=== PATIENT | female | born 1965 | race Caucasian/White ===

== ENCOUNTER 2017-09-04 11:46 | Emergency (ER) | payer OTHER ==
[~2017-09-04] VITALS: Ht 149.9 cm; Wt 84.0 kg
[2017-09-04 11:55] VITALS: BP 131/82; PULSE 86; RESP 16; TEMP 98.2; O2SAT 98
[2017-09-04] MEDS ORDERED: METF500T PO (12:07)
[2017-09-04] MEDS ORDERED: SODIUM CHLORIDE 0.9% FLUSH 10 ML FLUSH IVF PRN (12:15)
[2017-09-04] MEDS ORDERED: SODIUM CHLORID 0.9% 500 ML INJ 500 ML IV ONE (12:15)
--- NOTE | 2017-09-04 12:37 | PD ---
HPI Chief Complaint: Dizziness Time Seen by Provider: 11:59 Travel History International Travel<30 days: No Contact w/Intl Traveler<30days: No Traveled to known affect area: No History of Present Illness HPI 51-year-old female came to the emergency room brought by EMS for dizziness while she was trying to bend down and take some laundry out of the machine. Patient says at that time she also had some neck pain. She's been having some on and off headache, sore throat and other unrelated complains for past 2-3 days. But then she also says that she gets frequent headaches and that is not new for her. No history of vomiting or diarrhea. No history of fever or chills. Patient says yesterday she slept with her neck crooked for some time and when she woke up she was having some neck discomfort. Currently she appears to be very comfortable and vital signs are stable. She moved from [place] and does not have a primary care here. Vital signs are stable. When she arrived in the ER on the ambulance stretcher she was on her cell phone. [facility] Past Medical History Narrative Medical List of her past medical, surgical, social and family history is reviewed from the nursing note. Anxiety: Yes (WITH PAINIC ATTACKS) High Cholesterol: Yes Diabetes: Yes Patient Takes Glucophage: Yes (METFORMIN) Musculoskeletal: Yes (OSTEOPENIA) Immunizations Current: Yes ?: Not Past Surgical History Section: Yes (X2) Social History Alcohol Use: No Tobacco Use: No (NEVER) Substance Use: No Allergies-Medications (Allergen,Severity, Reaction): Coded Allergies: No Known Allergies (Unverified , 09/04/17) Comments No known drug allergies. Reported Meds & Prescriptions Reported Meds & Active Scripts Active Accu-Chek Amy Connect W/Device (Blood Glucose Monitoring Suppl) 1 Kit Kit Kit .ROUTE DIRECTED Macrobid (Nitrofurantoin Monoh/Nitrofur Macro) 100 Mg Cap 100 Mg PO BID 5 Days Meclizine (Meclizine HCl) 12.5 Mg Tab 12.5 Mg PO TID PRN Reported Metformin (Metformin HCl) 500 Mg Tab 500 Mg PO BIDPC Narrative Medication List of her home medications reviewed from the nursing note. Review of Systems Except as stated in HPI: all other systems reviewed are Neg Neurologic: Positive: Dizziness Physical Exam Narrative GENERAL: Awake, alert, no obvious distress SKIN: Focused skin assessment warm/dry. HEAD: Atraumatic. Normocephalic. EYES: Pupils equal and round. No scleral icterus. No injection or drainage. ENT: No nasal bleeding or discharge. Mucous membranes pink and moist. NECK: Trachea midline. No JVD. CARDIOVASCULAR: Regular rate and rhythm. No murmur appreciated. RESPIRATORY: No accessory muscle use. Clear to auscultation. Breath sounds equal bilaterally. GASTROINTESTINAL: Abdomen soft, non-tender, nondistended. Hepatic and splenic margins not palpable. MUSCULOSKELETAL: No obvious deformities. No clubbing. No cyanosis. No edema. NEUROLOGICAL: Awake and alert. No obvious cranial nerve deficits. Motor grossly within normal limits. Normal speech. PSYCHIATRIC: Appropriate mood and affect; insight and judgment normal. Data Data Last Documented VS Vital Signs Date Time Temp Pulse Resp B/P (MAP) Pulse Ox O2 Delivery O2 Flow Rate FiO2 09/04/17 14:43 09/04/17 14:00 77 16 99 Room Air 09/04/17 11:55 98.2 Orders Orders Electrocardiogram (09/04/17 12:12) Basic Metabolic Panel (Bmp) (09/04/17 12:12) Complete Blood Count With Diff (09/04/17 12:12) Magnesium (Mg) (09/04/17 12:12) Troponin I (09/04/17 12:12) Chest, Single Ap (09/04/17 12:12) Ecg Monitoring (09/04/17 12:12) Bilateral Bp Monitoring (09/04/17 12:12) Iv Access Insert/Monitor (09/04/17 12:12) Oximetry (09/04/17 12:12) Oxygen Administration (09/04/17 12:12) Sodium Chloride 0.9% Flush (Ns Flush) (09/04/17 12:15) Sodium Chlorid 0.9% 500 Ml Inj (Ns 500 M (09/04/17 12:15) Urinalysis - C+S If Indicated (09/04/17 12:12) Meclizine (Antivert) (09/04/17 12:45) Nitrofurantoin Monohyd Macrocr (Macrobid (09/04/17 14:00) Ed Discharge Order (09/04/17 13:49) Urine Culture (09/04/17 13:35) Labs Laboratory Tests Test 09/04/17 12:50 09/04/17 13:35 White Blood Count 6.8 TH/MM3 Red Blood Count 4.88 MIL/MM3 Hemoglobin 13.7 GM/DL Hematocrit 41.5 % Mean Corpuscular Volume 85.1 FL Mean Corpuscular Hemoglobin 28.2 PG Mean Corpuscular Hemoglobin Concent 33.1 % Red Cell Distribution Width 12.4 % Platelet Count 308 TH/MM3 Mean Platelet Volume 7.9 FL Neutrophils (%) (Auto) 82.3 % Lymphocytes (%) (Auto) 10.7 % Monocytes (%) (Auto) 5.6 % Eosinophils (%) (Auto) 1.1 % Basophils (%) (Auto) 0.3 % Neutrophils # (Auto) 5.6 TH/MM3 Lymphocytes # (Auto) 0.7 TH/MM3 Monocytes # (Auto) 0.4 TH/MM3 Eosinophils # (Auto) 0.1 TH/MM3 Basophils # (Auto) 0.0 TH/MM3 CBC Comment DIFF FINAL Differential Comment Blood Urea Nitrogen 10 MG/DL Creatinine 0.75 MG/DL Random Glucose 176 MG/DL Calcium Level 9.0 MG/DL Magnesium Level 2.3 MG/DL Sodium Level 138 MEQ/L Potassium Level 3.6 MEQ/L Chloride Level 105 MEQ/L Carbon Dioxide Level 25.8 MEQ/L Anion Gap 7 MEQ/L Estimat Glomerular Filtration Rate 81 ML/MIN Troponin I LESS THAN 0.02 NG/ML Urine Collection Type CLEAN CATCH Urine Color YELLOW Urine Turbidity CLEAR Urine pH 6.0 Urine Specific [place] 1.007 Urine Protein NEG mg/dL Urine Glucose (UA) NEG mg/dL Urine Ketones NEG mg/dL Urine Occult Blood TRACE Urine Nitrite NEG Urine Bilirubin NEG Urine Leukocyte Esterase TRACE Urine RBC 0-3 /hpf Urine WBC 0-2 /hpf Urine Squamous Epithelial Cells 6-8 /hpf Urine Renal Epithelial Cells 0-5 /hpf Urine Bacteria MOD /hpf Microscopic Urinalysis Comment CULTURE INDICATED Urine Collection Time 13:35 MDM Medical Decision Making Medical Screen Exam Complete: Yes Emergency Medical Condition: Yes Medical Record Reviewed: Yes Interpretation(s) Twelve-lead EKG was reviewed by me. Normal sinus rhythm, normal axis, nonspecific ST-T wave changes. Heart rate of 70 bpm. Differential Diagnosis Vertigo, cervical radiculopathy Narrative Course 12:42 PM awaiting for the blood test results. I'm giving her 500 cc of IV fluid bolus. I'll order some meclizine as well. If the blood test results are within normal limit I will discharge her home. I have emphasized on getting a primary care for herself. She me and future require an MRI of her cervical spine. 1:33 PM blood test results are back. Patient has slight hyperglycemia. She does have type 2 diabetes and is on metformin. Awaiting for the UA. If that's negative patient will be discharged home. Chest x-ray was read as some by basilar density. Patient has no respiratory symptoms. 1:49 PM UA is suggestive of UTI and culture has been indicated. I've given her dose of Macrobid. Patient will be discharged home. 1:57 PM patient just told me that she does not have the Accu-Chek machine at home and hence she has not been taking her metformin. I will give her a prescription for the Accu-Chek machine. Procedures EKG Prior to Arrival: No Diagnosis Primary Impression: BPV (benign positional vertigo) Qualified Codes: H81.10 - Benign paroxysmal vertigo, unspecified ear Additional Impressions: UTI (urinary tract infection) Qualified Codes: N39.0 - Urinary tract infection, site not specified Cervical radiculopathy Diabetes Qualified Codes: E11.9 - Type 2 diabetes mellitus without complications; Z79.4 - prison (current) use of insulin Noncompliance with medication regimen Referrals: Primary Care Physician 1 week Additional Instructions: Please find a primary care for yourselves and follow-up with them for persistence of symptoms. Return to the ER if the condition worsens or any other new concerns. Take medication as per the prescription direction. Should not be driving until you have been cleared by a primary care. Med/Other Pt SpecificInfo: Prescription(s) given Scripts Blood Glucose Monitoring Suppl (Accu-Chek Amy Connect W/Device) 1 Kit Kit KIT .ROUTE DIRECTED for Blood Sugar Management, #1 0 Refills Prov: Sherry Boyce MD 09/04/17 Nitrofurantoin Monohydrate Macrocrystals (Macrobid) 100 Mg Cap 100 MG PO BID for Infection for 5 Days, #10 CAP 0 Refills Prov: Sherry Boyce MD 09/04/17 Meclizine (Meclizine) 12.5 Mg Tab 12.5 MG PO TID Y for VERTIGO, #15 TAB 0 Refills Prov: Sherry Boyce MD 09/04/17 Disposition: 01 DISCHARGE HOME Condition: Stable Sherry Boyce MD Sep 04, 2017 12:37
[2017-09-04 12:42] VITALS: O2SAT 100
--- NOTE | 2017-09-04 12:44 | RADRPT ---
EXAM DATE/TIME: 09/04/2017 12:25 [facility] COMPARISON: No previous studies available for comparison. INDICATIONS : Chest pain, dizzy, neck pain , headache, today MEDICAL HISTORY : Diabetes mellitus type II. SURGICAL HISTORY : None. ENCOUNTER: Initial ACUITY: 1 day PAIN SCORE: 4/10 LOCATION: Left upper chest FINDINGS: The lungs are hypoaerated. There is interstitial vascular prominence in both lung bases with mild inc reased density in the left. Heart is mildly enlarged. Osseous structures are intact. CONCLUSION: Poor inspiratory chest with increased density in the left base but no evidence of consolidating airsp mindi disease. Mason Muniz MD on September 04, 2017 at 12:41 Board Certified Radiologist. This report was verified electronically.
[2017-09-04] MEDS ORDERED: MECLIZINE HCL 25 MG TAB PO ONE (12:45)
[2017-09-04 12:59] VITALS: BP_SYST 116; BP_SYST 121; BP_DIAS 67; BP_DIAS 69
[2017-09-04 13:08] LABS: AUTOMATED NEUTROPHIL # 5.6 TH/MM3 (1.8-7.7); BASOPHIL % 0.3 % (0.0-2.0); EOSINOPHIL # 0.1 TH/MM3 (0-0.4); EOSINOPHIL % 1.1 % (0.0-4.0); HEMATOCRIT 41.5 % (35.0-46.0); HEMO FLAGS DIFF FINAL; LYMPH % 10.7 % (9.0-44.0); LYMPHOCYTE # 0.7 TH/MM3 (1.0-4.8); MEAN CELL VOLUME 85.1 FL (80.0-100.0); MEAN CORPUSCULAR HEMOGLOBIN 28.2 PG (27.0-34.0); MEAN CORPUSCULAR HGB CONC 33.1 % (32.0-36.0); MONO % 5.6 % (0.0-8.0); NEUT % 82.3 % (16.0-70.0); PLATELET COUNT 308 TH/MM3 (150-450); RED BLOOD COUNT 4.88 MIL/MM3 (4.00-5.30); RED CELL DISTRIBUTION WIDTH 12.4 % (11.6-17.2); WHITE BLOOD COUNT 6.8 TH/MM3 (4.0-11.0)
[2017-09-04 13:21] LABS: CHLORIDE 105 MEQ/L (98-107); POTASSIUM 3.6 MEQ/L (3.5-5.1); SODIUM (NA) 138 MEQ/L (136-145)
[2017-09-04 13:27] LABS: ANION GAP 7 MEQ/L (5-15); BICARBONATE 25.8 MEQ/L (21.0-32.0); BLOOD UREA NITROGEN 10 MG/DL (7-18); MAGNESIUM 2.3 MG/DL (1.5-2.5)
[2017-09-04 13:30] LABS: GLOMERULAR FILTRATION RATE 81 ML/MIN (>89)
[2017-09-04 13:40] LABS: BLOOD, URINE TRACE (NEG); GLUCOSE,URINE NEG (NEG); KETONE, URINE NEG (NEG); NITRITE,URINE NEG (NEG)
[2017-09-04 13:46] LABS: METHOD OF COLLECTION CLEAN CATCH; URINE COLOR YELLOW (YELLW/STRAW)
[2017-09-04 13:47] LABS: BACTERIA, URINE MOD /hpf; COMMENT (UR) CULTURE INDICATED; CULTURE IF INDICATED CULTURE INDICATED; RBC, URINE 0-3 /hpf (0-3); RENAL EPITHELIAL CELLS 0-5 /hpf; WBC, URINE 0-2 /hpf (0-5)
[2017-09-04] MEDS ORDERED: MACR100C2 PO (13:51)
[2017-09-04] MEDS ORDERED: MECL12.574 PO (13:51)
[2017-09-04] MEDS ORDERED: BLOO1KIT65 (13:57)
[2017-09-04 14:00] VITALS: BP 103/99; PULSE 77; RESP 16; O2SAT 99
[2017-09-04] MEDS ORDERED: NITROFURANTOIN MONOHYD MACROCR 100 MG CAP PO ONE (14:00)
--- NOTE | 2017-09-05 12:54 | EKG ---
Date Performed: 09/04/2017 Time Performed: 12:54:17 PTAGE: 51 years EKG: Sinus rhythm WITH SINUS ARRHYTHMIA NORMAL ECG NO PREVIOUS TRACING DOCTOR: Michi Lizarraga Interpretating Date/Time 09/05/2017 12:52:43
== END 2017-09-04 14:45 | disposition home or self-care (01) ==
LOC: PHED 11:46
DX: H81.10 Benign paroxysmal vertigo, unspecified ear (principal); N39.0 Urinary tract infection, site not specified; M54.12 Radiculopathy, cervical region; E11.9 Type 2 diabetes mellitus without complications; R07.0 Pain in throat; I49.9 Cardiac arrhythmia, unspecified; E78.00 Pure hypercholesterolemia, unspecified; Z91.14 Patient's other noncompliance with medication regimen; Z79.899 Other long term (current) drug therapy; Z79.84 Long term (current) use of oral hypoglycemic drugs; Z86.59 Personal history of other mental and behavioral disorders; Z87.39 Personal history of other diseases of the musculoskeletal system and connective tissue
CPT/HCPCS: 71010; 80048; 81001; 83735; 84484; 85025; 87086; 93005; 96360; 99285; J7040